=== PATIENT | male | born 2000 | race Caucasian/White ===

== ENCOUNTER 2019-11-15 13:06 | Emergency (ER) | payer OTHER ==
[~2019-11-15] VITALS: Ht 177.8 cm; Wt 84.8 kg
[~2019-11-15 13:06] MED LIST: CEPH500C16
[2019-11-15 13:20] VITALS: BP 146/74
--- NOTE | 2019-11-15 14:28 | NUR ---
AMBULATED TO BED 8
--- NOTE | 2019-11-15 14:32 | NUR ---
19 YO MALE CO SORE THROAT AND TONSIL PAIN. TONSILS ARE RED AND SWOLLEN ON BOTH SIDES. PT ALSO STATES THAT HE HAS HAD A HEADACHE FOR A FEW DAYS WELL. NO PMH.
[2019-11-15 17:01] VITALS: BP 146/74
== END 2019-11-15 17:01 | disposition home or self-care (01) ==
LOC: MED 13:06
DX: J02.0 Streptococcal pharyngitis (principal); Z79.899 Other long term (current) drug therapy
CPT/HCPCS: 99283